=== PATIENT | female | born 1980 | race Caucasian/White ===

== ENCOUNTER → 2020-05-23 | Day surgery (SDC) | payer BC, OTHER ==
[~2020-05-23] MED LIST: HYDROCODON-ACE1 EAC4 PO; IBUPROFEN600 MG PO; NORCO 5-325 TA1 EACH PO; PANTOPRAZOLE PO; QUETIAPINE FUM200 MG PO; SEROQUEL400 MG PO; SERTRALINE HCL100 MG PO; STOOL SOFTENER100 M1 PO; VIBRAMYCIN100 MG PO; XANAX PO; XANAX0.5 MG PO; ZOLOFT100 MG PO
== END | disposition home or self-care (01) ==
LOC: OR 07:20
DX: G56.01 Carpal tunnel syndrome, right upper limb (principal); K21.9 Gastro-esophageal reflux disease without esophagitis; F17.210 Nicotine dependence, cigarettes, uncomplicated; F41.9 Anxiety disorder, unspecified; F32.9 Major depressive disorder, single episode, unspecified; Z79.899 Other long term (current) drug therapy
CPT/HCPCS: 84703; J1100; J1885; J2001; J2250; J2405; J2704; J3010

== ENCOUNTER → 2020-07-18 | Outpatient (CLI) | payer BC, OTHER | LOC: LAB 11:04 | DX: Z32.00 Encounter for pregnancy test, result unknown (principal) | CPT/HCPCS: 36415; 84702 ==

== ENCOUNTER 2020-09-21 19:20 | Emergency (ER) | payer BC, OTHER ==
[2020-09-22] MEDS ORDERED: PHENERGAN 25 MG25 M1 PO (02:17)
== END 2020-09-22 05:24 | disposition home or self-care (01) ==
LOC: ER1 19:20
DX: O98.512 Other viral diseases complicating pregnancy, second trimester (principal); Z23 Encounter for immunization; U07.1 COVID-19; Z3A.13 13 weeks gestation of pregnancy; O99.332 Smoking (tobacco) complicating pregnancy, second trimester; F17.210 Nicotine dependence, cigarettes, uncomplicated
CPT/HCPCS: 99284; M0243; U0002

== ENCOUNTER 2020-09-26 12:12 | Emergency (ER) | payer BC, OTHER ==
[~2020-09-26 12:12] MED LIST changes: +PHENERGAN 25 MG25 M1 PO
== END 2020-09-26 12:57 | disposition left against medical advice (07) ==
LOC: ER1 12:12
DX: Z53.21 Procedure and treatment not carried out due to patient leaving prior to being seen by health care provider (principal)

== ENCOUNTER 2020-11-13 12:03 | Emergency (ER) | payer OTHER | END 2020-11-13 13:48 | disposition home or self-care (01) | LOC: ER1 12:03 | DX: O9A.212 Injury, poisoning and certain other consequences of external causes complicating pregnancy, second trimester (principal); R10.9 Unspecified abdominal pain; O99.332 Smoking (tobacco) complicating pregnancy, second trimester; F17.200 Nicotine dependence, unspecified, uncomplicated; Z3A.24 24 weeks gestation of pregnancy; V49.40XA Driver injured in collision with unspecified motor vehicles in traffic accident, initial encounter; Y92.410 Unspecified street and highway as the place of occurrence of the external cause | CPT/HCPCS: 99283 ==

== ENCOUNTER 2021-01-23 23:49 | Outpatient (CLI) | payer BC, OTHER | END 2021-01-24 02:03 | disposition home or self-care (01) | LOC: GENOP 23:49 | DX: O47.03 False labor before 37 completed weeks of gestation, third trimester (principal); O99.891 Other specified diseases and conditions complicating pregnancy; M89.8X9 Other specified disorders of bone, unspecified site; R10.2 Pelvic and perineal pain; O35.8XX0 Maternal care for other (suspected) fetal abnormality and damage, not applicable or unspecified; Z3A.32 32 weeks gestation of pregnancy | CPT/HCPCS: G0463 ==

== ENCOUNTER 2021-01-28 14:09 | Observation (INO) | payer BC, OTHER ==
[2021-01-28 15:06] LABS: HEMOGLOBIN 11.3 gm/dl (12.3-15.3); RED BLOOD COUNT 3.66 M/UL (4.00-5.10); WHITE BLOOD COUNT 11.4 K/UL (4.5-11.0)
== END 2021-01-29 10:22 | disposition home or self-care (01) ==
LOC: GENOP 14:09 → OB 15:08
PROVIDERS: ADMIT Obstetrics & Gynecology
DX: O47.03 False labor before 37 completed weeks of gestation, third trimester (principal); O35.8XX0 Maternal care for other (suspected) fetal abnormality and damage, not applicable or unspecified; O99.613 Diseases of the digestive system complicating pregnancy, third trimester; K21.9 Gastro-esophageal reflux disease without esophagitis; O99.343 Other mental disorders complicating pregnancy, third trimester; F31.9 Bipolar disorder, unspecified; O99.333 Smoking (tobacco) complicating pregnancy, third trimester; F17.200 Nicotine dependence, unspecified, uncomplicated; Z20.822 Contact with and (suspected) exposure to COVID-19; Z3A.33 33 weeks gestation of pregnancy
CPT/HCPCS: 36415; 59025; 81001; 85025; 96360; 96361; 96372; G0378; J0702; J7120; U0002

== ENCOUNTER 2021-02-10 09:14 | Emergency (ER) | payer BC, OTHER | END 2021-02-10 10:00 | disposition left against medical advice (07) | LOC: ER1 09:14 → GENOP 09:14 → EDSTATUS 09:19 → ER1 10:00 | DX: Z53.21 Procedure and treatment not carried out due to patient leaving prior to being seen by health care provider (principal) ==

== ENCOUNTER 2021-02-10 10:47 | Outpatient (CLI) | payer BC, OTHER | END 2021-02-10 13:08 | disposition home or self-care (01) | LOC: GENOP 10:47 | PROVIDERS: Obstetrics & Gynecology | DX: O42.913 Preterm premature rupture of membranes, unspecified as to length of time between rupture and onset of labor, third trimester (principal); Z3A.35 35 weeks gestation of pregnancy; Z20.822 Contact with and (suspected) exposure to COVID-19 | CPT/HCPCS: 59025; 80307; 81001; 83518; U0002 ==

== ENCOUNTER 2021-02-28 22:12 | Inpatient (IN) | payer BC, OTHER ==
[2021-02-28] MEDS ORDERED: SEROQUEL50 MG PO (23:00)
[2021-02-28 23:15] LABS: HEMOGLOBIN 11.2 gm/dl (12.3-15.3); RED BLOOD COUNT 3.8 M/UL (4.00-5.10); WHITE BLOOD COUNT 14.2 K/UL (4.5-11.0)
[2021-03-01] MEDS ORDERED: DOCUSATE SODIU100 MG PO (15:23)
[2021-03-01] MEDS ORDERED: IBUPROFEN600 MG PO (15:23)
[2021-03-02 05:30] LABS: HEMOGLOBIN 9.6 gm/dl (12.3-15.3)
[2021-03-02] MEDS ORDERED: HYDROCODON-ACE1 EAC4 PO (10:54)
== END 2021-03-02 17:30 | disposition home or self-care (01) | DRG 807 ==
LOC: GENOP 22:12 → OB 03-01 01:17
PROVIDERS: ADMIT Obstetrics & Gynecology
PROC: 10E0XZZ Delivery of Products of Conception, External Approach (ICD-10-PCS; principal; 2021-03-01)
PROC: 10H07YZ Insertion of Other Device into Products of Conception, Via Natural or Artificial Opening (ICD-10-PCS; 2021-03-01)
PROC: 4A1H7CZ Monitoring of Products of Conception, Cardiac Rate, Via Natural or Artificial Opening (ICD-10-PCS; 2021-03-01)
PROC: 10H073Z Insertion of Monitoring Electrode into Products of Conception, Via Natural or Artificial Opening (ICD-10-PCS; 2021-03-01)
PROC: 3E0234Z Introduction of Serum, Toxoid and Vaccine into Muscle, Percutaneous Approach (ICD-10-PCS; 2021-03-01)
DX: O99.344 Other mental disorders complicating childbirth (principal); Z37.0 Single live birth; F31.9 Bipolar disorder, unspecified; O42.90 Premature rupture of membranes, unspecified as to length of time between rupture and onset of labor, unspecified weeks of gestation; O99.334 Smoking (tobacco) complicating childbirth; F17.200 Nicotine dependence, unspecified, uncomplicated; O99.62 Diseases of the digestive system complicating childbirth; Z20.822 Contact with and (suspected) exposure to COVID-19; K21.9 Gastro-esophageal reflux disease without esophagitis; O99.824 Streptococcus B carrier state complicating childbirth; Z90.49 Acquired absence of other specified parts of digestive tract; Z98.890 Other specified postprocedural states; Z98.84 Bariatric surgery status; Z3A.38 38 weeks gestation of pregnancy; Z23 Encounter for immunization
CPT/HCPCS: 82800; 85014; 85018; 85025; 85461; 86850; 86900; 86901; 90471; 90715; J2405; J2590; J2790; J7120; U0002

== ENCOUNTER 2021-03-09 09:05 | Emergency (ER) | payer BC, OTHER ==
[~2021-03-09 09:05] MED LIST changes: +DOCUSATE SODIU100 MG PO; +SEROQUEL50 MG PO
[2021-03-09 09:53] LABS: HEMOGLOBIN 10.3 gm/dl (12.3-15.3); RED BLOOD COUNT 3.59 M/UL (4.00-5.10)
[2021-03-09 10:10] LABS: BUN/CREATININE RATIO 19 (0-10)
[2021-03-09] MEDS ORDERED: MACROBID 100 M100 M1 PO (11:27)
== END 2021-03-09 11:59 | disposition left against medical advice (07) ==
LOC: ER1 09:05
PROVIDERS: Nurse Practitioner
DX: G43.909 Migraine, unspecified, not intractable, without status migrainosus (principal); N39.0 Urinary tract infection, site not specified; Z90.49 Acquired absence of other specified parts of digestive tract; F17.210 Nicotine dependence, cigarettes, uncomplicated; Z20.822 Contact with and (suspected) exposure to COVID-19
CPT/HCPCS: 0240U; 80048; 81001; 85025; 96374; 96375; 99283; J0696; J0780; J1100; J1170; J1200; J7030

== ENCOUNTER 2021-03-10 09:25 | Emergency (ER) | payer BC, OTHER ==
[~2021-03-10 09:25] MED LIST changes: +MACROBID 100 M100 M1 PO
[2021-03-10 10:10] LABS: HEMOGLOBIN 10.7 gm/dl (12.3-15.3); RED BLOOD COUNT 3.75 M/UL (4.00-5.10); WHITE BLOOD COUNT 10.7 K/UL (4.5-11.0)
[2021-03-10 10:33] LABS: BUN/CREATININE RATIO 18 (0-10)
== END 2021-03-10 10:45 | disposition other institution (70) ==
LOC: ER1 09:25
PROVIDERS: Student in an Organized Health Care Education/Training Program
DX: I61.9 Nontraumatic intracerebral hemorrhage, unspecified (principal); R47.9 Unspecified speech disturbances; R29.707 NIHSS score 7; R29.810 Facial weakness; F41.9 Anxiety disorder, unspecified; F17.200 Nicotine dependence, unspecified, uncomplicated; Z20.822 Contact with and (suspected) exposure to COVID-19
CPT/HCPCS: 51702; 70450; 80048; 85025; 85610; 85730; 93005; 99284; U0002

== ENCOUNTER 2021-04-11 22:55 | Emergency (ER) | payer BC, OTHER ==
[2021-04-11 23:13] LABS: HEMOGLOBIN 12.8 gm/dl (12.3-15.3); RED BLOOD COUNT 4.74 M/UL (4.00-5.10); WHITE BLOOD COUNT 6.9 K/UL (4.5-11.0)
[2021-04-11 23:35] LABS: BUN/CREATININE RATIO 7 (0-10)
== END 2021-04-12 00:38 | disposition left against medical advice (07) ==
LOC: ER1 22:55
DX: I63.9 Cerebral infarction, unspecified (principal); I10 Essential (primary) hypertension; R29.810 Facial weakness; R47.81 Slurred speech; R29.707 NIHSS score 7
CPT/HCPCS: 70450; 71045; 80053; 82550; 82553; 82962; 84484; 85025; 85610; 93005; 99283

== ENCOUNTER 2021-07-09 19:59 | Emergency (ER) | payer BC, OTHER ==
[2021-07-09 21:02] LABS: HEMOGLOBIN 13.2 gm/dl (12.3-15.3); RED BLOOD COUNT 4.56 M/UL (4.00-5.10); WHITE BLOOD COUNT 7.7 K/UL (4.5-11.0)
[2021-07-09 21:18] LABS: BUN/CREATININE RATIO 12 (0-10)
== END 2021-07-09 23:43 | disposition left against medical advice (07) ==
LOC: ER1 19:59
PROVIDERS: Nurse Practitioner
DX: R51.9 Headache, unspecified (principal); I10 Essential (primary) hypertension; F17.210 Nicotine dependence, cigarettes, uncomplicated; Z86.73 Personal history of transient ischemic attack (TIA), and cerebral infarction without residual deficits; Z79.899 Other long term (current) drug therapy
CPT/HCPCS: 70450; 80053; 85025; 85610; 85730; 99283

== ENCOUNTER 2021-09-10 14:00 | Emergency (ER) | payer BC, OTHER ==
[2021-09-10 14:55] LABS: HEMOGLOBIN 13.4 gm/dl (12.3-15.3); RED BLOOD COUNT 4.7 M/UL (4.00-5.10); WHITE BLOOD COUNT 6.2 K/UL (4.5-11.0)
[2021-09-10 16:42] LABS: BUN/CREATININE RATIO 11 (0-10)
== END 2021-09-10 15:10 | disposition left against medical advice (07) ==
LOC: ER1 14:00
PROVIDERS: Preventive Medicine Occupational Medicine
DX: R20.0 Anesthesia of skin (principal); F17.210 Nicotine dependence, cigarettes, uncomplicated; Z86.73 Personal history of transient ischemic attack (TIA), and cerebral infarction without residual deficits
CPT/HCPCS: 70450; 71045; 80053; 82550; 82553; 84484; 85025; 85610; 85730; 86140; 99283